=== PATIENT | male | born 1935 | race Caucasian/White ===

== ENCOUNTER 2017-04-30 21:48 | Inpatient (IN) | payer MEDICARE, OTHER ==
[~2017-04-30] VITALS: Ht 170.2 cm; Wt 86.2 kg
[~2017-04-30 21:48] MED LIST: ACET650S12 PO; ACYC-57 PO; AMIO200T PO; AMIT25TA PO; ASPI-515 PO; ATOR40TA PO; AZIT500T5 PO; BISA10SU54 PR; CEFD300C37 PO; CHOL2000 PO; DOCU240C31 PO; GABA-826 PO; GABA100C PO; LACT1CAP24 PO; LEVO500T47 PO; LIDO30CR TP; LIDO700A5 TD; MAGN400T26 PO; MERC50TA17 PO; METO25TA35 PO; METO25TA91 PO; MULT-26 PO; ONDA4TAB12 PO; OXYC-302 PO; PANT40TA3 PO; POLY17PO5 PO; PRED5TAB PO; SENN-31 PO; SIMV40TA3 PO; SIMV80TA3 PO; WARF1TAB7 PO; WARF5TAB7 PO
[2017-04-30] MEDS ORDERED: SODIUM CHLORIDE 0.9% 1,000ML IVBOLUS ONE (22:30)
[2017-04-30 23:11] LABS: INTERNATIONAL NORMALIZED RATIO 2.58 (0.93-1.1); PROTHROMBIN TIME 26.1 Seconds (9.6-11.5)
[2017-04-30 23:12] LABS: ALANINE AMINOTRANSFERASE 30 U/L (12-78); ALBUMIN 3.3 g/dL (3.4-5.0); ANION GAP 5 mmol/L (5-15); CALCIUM 8.8 mg/dL (8.5-10.1); CHLORIDE 109 mmol/L (98-107)
[2017-04-30 23:15] LABS: ALKALINE PHOSPHATASE 59 U/L (45-117); BILIRUBIN,TOTAL 0.7 mg/dL (0.2-1.0); CREATINE KINASE, TOTAL 42 U/L (39-308); TOTAL PROTEIN 7.4 g/dL (6.4-8.2)
[2017-04-30 23:19] LABS: BASOPHILS # (AUTO) 0.03 x10^3/uL (0-0.1); BASOPHILS % (AUTO) 0 % (0-1); EOSINOPHILS # (AUTO) 0.12 x10^3/uL (0-0.4); EOSINOPHILS % (AUTO) 1 % (1-7); LYMPHOCYTES # (AUTO) 0.61 x10^3/uL (1-3.4); LYMPHOCYTES % (AUTO) 5 % (22-44); MD SCAN; MEAN CORPUSCULAR HGB CONC 36.1 g/dL (33.2-36.2); MEAN CORPUSCULAR VOLUME 94.1 fL (81-97); MEAN PLATELET VOLUME 10.5 fL (7.4-10.4); MONOCYTES # (AUTO) 0.46 x10^3/uL (0.2-0.8); MONOCYTES % (AUTO) 4 % (2-9); NEUTROPHILS # (AUTO) 11.21 x10^3/uL (1.8-6.8); NEUTROPHILS % (AUTO) 90 % (42-75); PLATELET COUNT 97 x10^3/uL (130-400); RED BLOOD COUNT 4.42 x10^6/uL (4.38-5.82); RED CELL DISTRIBUTION WIDTH 15.5 % (9.4-14.8)
[2017-05-01 00:12] LABS: MICROSCOPIC NOT IND
[2017-05-01 00:14] LABS: CULTURE INDICATED? NO
[2017-05-01 01:53] VITALS: BP_SYST 169; BP_SYST 170; BP_DIAS 82; BP_DIAS 90
[2017-05-01 02:00] VITALS: BP 170/90
[2017-05-01] MEDS ORDERED: ONDANSETRON 2MG/ML, 2ML IVPush PRN (02:00)
[2017-05-01] MEDS ORDERED: POTASSIUM CHLORIDE 20 MEQ in SODIUM CHLORIDE 0.9% 1,000 ML IV SCH (02:00)
[2017-05-01] MEDS ORDERED: DOCUSATE 100 MG CAPSULE PO PRN (02:00)
[2017-05-01] MEDS ORDERED: POLYETHYLENE GLYCOL 17 GM PACKET PO PRN (02:00)
[2017-05-01 06:29] VITALS: BP 157/72
[2017-05-01] MEDS: MAGNESIUM OXIDE 400 MG TABLET PO SCH ×2 (08:39→20:54)
[2017-05-01] MEDS: AMITRIPTYLINE 25 MG TABLET PO SCH (08:39)
[2017-05-01] MEDS: GABAPENTIN 100 MG CAPSULE PO SCH ×3 (08:39→20:54)
[2017-05-01] MEDS: LACTOBACILLUS 1GM/ PACKET PO SCH ×3 (08:39→20:54)
[2017-05-01] MEDS: MULTIVITAMIN 1 TABLET PO SCH (08:39)
[2017-05-01] MEDS: SENNA/DOCUSATE TABLET PO SCH (08:39)
[2017-05-01 12:43] VITALS: BP 161/88
[2017-05-01] MEDS: WARFARIN 1 MG TABLET PO-COUM SCH (18:18)
[2017-05-01 20:00] VITALS: BP 122/63
[2017-05-01] MEDS: POTASSIUM CHLORIDE 20 MEQ in SODIUM CHLORIDE 0.9% 1,000 ML IV SCH (20:53)
[2017-05-01] MEDS: MERCAPTOPURINE 50 MG TABLET PO SCH (20:55)
[2017-05-02 01:30] VITALS: BP 145/93
[2017-05-02 05:33] LABS: ANION GAP 9 mmol/L (5-15); CALCIUM 8.4 mg/dL (8.5-10.1); CHLORIDE 111 mmol/L (98-107)
[2017-05-02 05:45] LABS: CREATININE 1.15 mg/dL (0.7-1.3)
[2017-05-02 07:41] VITALS: BP 131/91
[2017-05-02] MEDS: MAGNESIUM OXIDE 400 MG TABLET PO SCH ×2 (07:56→21:37)
[2017-05-02] MEDS: GABAPENTIN 100 MG CAPSULE PO SCH ×3 (07:56→21:37)
[2017-05-02] MEDS: MULTIVITAMIN 1 TABLET PO SCH (07:56)
[2017-05-02] MEDS: AMITRIPTYLINE 25 MG TABLET PO SCH (07:56)
[2017-05-02] MEDS: SENNA/DOCUSATE TABLET PO SCH (07:56)
[2017-05-02] MEDS: LACTOBACILLUS 1GM/ PACKET PO SCH ×3 (07:56→21:37)
[2017-05-02] MEDS: ACETAMINOPHEN 325 MG TABLET PO PRN (07:59)
[2017-05-02] MEDS: POTASSIUM CHLORIDE 20 MEQ in SODIUM CHLORIDE 0.9% 1,000 ML IV SCH (11:48)
[2017-05-02 14:00] VITALS: BP 135/85
[2017-05-02] MEDS: WARFARIN 1 MG TABLET PO-COUM SCH (17:52)
[2017-05-02 18:30] LABS: INTERNATIONAL NORMALIZED RATIO 2.11 (0.93-1.1); PROTHROMBIN TIME 21.4 Seconds (9.6-11.5)
[2017-05-02] MEDS ORDERED: WARFARIN 5 MG TABLET PO-COUM ONE (19:00)
[2017-05-02 20:00] VITALS: BP 150/80
[2017-05-02] MEDS: MERCAPTOPURINE 50 MG TABLET PO SCH (21:40)
[2017-05-03] MEDS: POTASSIUM CHLORIDE 20 MEQ in SODIUM CHLORIDE 0.9% 1,000 ML IV SCH ×2 (00:45→16:32)
[2017-05-03 02:48] VITALS: BP 134/76
[2017-05-03 05:41] LABS: CHLORIDE 111 mmol/L (98-107)
[2017-05-03 05:42] LABS: INTERNATIONAL NORMALIZED RATIO 2.09 (0.93-1.1); PROTHROMBIN TIME 21.2 Seconds (9.6-11.5)
[2017-05-03 05:48] LABS: ANION GAP 8 mmol/L (5-15); CALCIUM 8.7 mg/dL (8.5-10.1); CREATININE 1.22 mg/dL (0.7-1.3)
[2017-05-03 05:52] LABS: MEAN CORPUSCULAR HEMOGLOBIN 34.8 pg (27.5-34.5); MEAN CORPUSCULAR HGB CONC 35.9 g/dL (33.2-36.2); RED BLOOD COUNT 4.05 x10^6/uL (4.38-5.82); RED CELL DISTRIBUTION WIDTH 15.8 % (9.4-14.8)
[2017-05-03 06:30] LABS: BASOPHILS # (AUTO) 0.04 x10^3/uL (0-0.1); BASOPHILS % (AUTO) 1 % (0-1); EOSINOPHILS # (AUTO) 0.32 x10^3/uL (0-0.4); EOSINOPHILS % (AUTO) 4 % (1-7); LYMPHOCYTES # (AUTO) 0.89 x10^3/uL (1-3.4); LYMPHOCYTES % (AUTO) 11 % (22-44); MD SCAN; MEAN PLATELET VOLUME 10.3 fL (7.4-10.4); MONOCYTES # (AUTO) 0.56 x10^3/uL (0.2-0.8); MONOCYTES % (AUTO) 7 % (2-9); NEUTROPHILS # (AUTO) 6.16 x10^3/uL (1.8-6.8); NEUTROPHILS % (AUTO) 77 % (42-75); PLATELET COUNT 90 x10^3/uL (130-400)
[2017-05-03 07:41] VITALS: BP 139/70
[2017-05-03] MEDS: AMITRIPTYLINE 25 MG TABLET PO SCH ×2 (09:00→16:33)
[2017-05-03] MEDS: LACTOBACILLUS 1GM/ PACKET PO SCH ×3 (09:00→22:26)
[2017-05-03] MEDS: MULTIVITAMIN 1 TABLET PO SCH (09:00)
[2017-05-03] MEDS: SENNA/DOCUSATE TABLET PO SCH (09:00)
[2017-05-03] MEDS: MAGNESIUM OXIDE 400 MG TABLET PO SCH ×2 (09:00→22:26)
[2017-05-03] MEDS: GABAPENTIN 100 MG CAPSULE PO SCH ×3 (09:00→22:26)
[2017-05-03 13:30] VITALS: BP 168/76
[2017-05-03] MEDS ORDERED: MIDAZOLAM 1 MG/ML, 5ML ONE (15:22)
[2017-05-03] MEDS ORDERED: FENTANYL PF 100 MCG/2ML ONE (15:22)
[2017-05-03] MEDS ORDERED: NALOXONE 1 MG/ML, 2ML ONE (15:23)
[2017-05-03] MEDS ORDERED: FLUMAZENIL 0.1 MG/1 ML, 5ML ONE (15:23)
[2017-05-03] MEDS ORDERED: GADOBUTROL 7.5 MMOL/7.5 ML PFS ONE (15:50)
[2017-05-03] MEDS ORDERED: WARFARIN 3 MG TABLET PO-COUM ONE (18:00)
[2017-05-03 19:02] VITALS: BP 148/90
[2017-05-03] MEDS: MERCAPTOPURINE 50 MG TABLET PO SCH (22:26)
[2017-05-03] MEDS: ACETAMINOPHEN 325 MG TABLET PO PRN (22:26)
[2017-05-04 02:59] VITALS: BP 146/85
[2017-05-04 05:22] LABS: INTERNATIONAL NORMALIZED RATIO 2.25 (0.93-1.1); PROTHROMBIN TIME 22.8 Seconds (9.6-11.5)
[2017-05-04 07:10] VITALS: BP 156/90
[2017-05-04] MEDS: GABAPENTIN 100 MG CAPSULE PO SCH ×3 (08:51→20:42)
[2017-05-04] MEDS: MULTIVITAMIN 1 TABLET PO SCH (08:51)
[2017-05-04] MEDS: AMITRIPTYLINE 25 MG TABLET PO SCH (08:51)
[2017-05-04] MEDS: LACTOBACILLUS 1GM/ PACKET PO SCH ×3 (08:51→20:36)
[2017-05-04] MEDS: MAGNESIUM OXIDE 400 MG TABLET PO SCH ×2 (08:51→20:37)
[2017-05-04] MEDS: SENNA/DOCUSATE TABLET PO SCH (08:51)
[2017-05-04] MEDS: POTASSIUM CHLORIDE 20 MEQ in SODIUM CHLORIDE 0.9% 1,000 ML IV SCH (08:53)
[2017-05-04 13:59] VITALS: BP 136/71
[2017-05-04] MEDS ORDERED: WARFARIN 5 MG TABLET PO-COUM ONE (18:00)
[2017-05-04 20:37] VITALS: BP 140/77
[2017-05-04] MEDS: MERCAPTOPURINE 50 MG TABLET PO SCH (20:37)
[2017-05-04] MEDS: NS + 20MEQ KCL 1,000 ML IV SCH (22:25)
[2017-05-05 02:23] VITALS: BP 120/76
[2017-05-05 08:04] LABS: ANION GAP 5 mmol/L (5-15); CALCIUM 8.4 mg/dL (8.5-10.1); CHLORIDE 111 mmol/L (98-107); CREATININE 1.22 mg/dL (0.7-1.3); INTERNATIONAL NORMALIZED RATIO 2.59 (0.93-1.1); PROTHROMBIN TIME 26.2 Seconds (9.6-11.5)
[2017-05-05] MEDS: MULTIVITAMIN 1 TABLET PO SCH (08:18)
[2017-05-05] MEDS: GABAPENTIN 100 MG CAPSULE PO SCH (08:18)
[2017-05-05] MEDS: MAGNESIUM OXIDE 400 MG TABLET PO SCH (08:18)
[2017-05-05] MEDS: LACTOBACILLUS 1GM/ PACKET PO SCH (08:19)
[2017-05-05] MEDS: AMITRIPTYLINE 25 MG TABLET PO SCH (08:19)
[2017-05-05] MEDS: SENNA/DOCUSATE TABLET PO SCH (08:20)
[2017-05-05 08:40] LABS: MEAN CORPUSCULAR HEMOGLOBIN 31.8 pg (27.5-34.5); MEAN CORPUSCULAR HGB CONC 34.1 g/dL (33.2-36.2); MEAN CORPUSCULAR VOLUME 93.3 fL (81-97); RED BLOOD COUNT 4.31 x10^6/uL (4.38-5.82); RED CELL DISTRIBUTION WIDTH 15.9 % (9.4-14.8)
[2017-05-05 09:11] LABS: BASOPHILS # (AUTO) 0.06 x10^3/uL (0-0.1); BASOPHILS % (AUTO) 1 % (0-1); EOSINOPHILS # (AUTO) 0.29 x10^3/uL (0-0.4); EOSINOPHILS % (AUTO) 4 % (1-7); LYMPHOCYTES # (AUTO) 0.93 x10^3/uL (1-3.4); LYMPHOCYTES % (AUTO) 12 % (22-44); MD SCAN; MEAN PLATELET VOLUME 10.3 fL (7.4-10.4); MONOCYTES # (AUTO) 0.58 x10^3/uL (0.2-0.8); MONOCYTES % (AUTO) 7 % (2-9); NEUTROPHILS # (AUTO) 5.95 x10^3/uL (1.8-6.8); NEUTROPHILS % (AUTO) 76 % (42-75); PLATELET COUNT 85 x10^3/uL (130-400)
[2017-05-05] MEDS: NS + 20MEQ KCL 1,000 ML IV SCH (12:59)
[2017-05-05] MEDS ORDERED: WARFARIN 5 MG TABLET PO-COUM ONE (18:00)
[2017-05-05] MEDS ORDERED: SIMVASTATIN 40 MG TABLET PO SCH (21:00)
== END 2017-05-05 17:36 | DRG 70 ==
LOC: ED 05-01 01:08 → SUATTDRO 05-01 01:18 → EDIP 05-01 01:22 → 4NOR 05-01 01:37 → 4WST 05-04 11:19
PROVIDERS: ADMIT Emergency Medicine; ATTEND Hospitalist
DX: G93.41 Metabolic encephalopathy (principal); N17.0 Acute kidney failure with tubular necrosis; I63.9 Cerebral infarction, unspecified; E44.0 Moderate protein-calorie malnutrition; K51.90 Ulcerative colitis, unspecified, without complications; D69.6 Thrombocytopenia, unspecified; I48.0 Paroxysmal atrial fibrillation; I11.0 Hypertensive heart disease with heart failure; I50.22 Chronic systolic (congestive) heart failure; G20 Parkinson's disease; I25.10 Atherosclerotic heart disease of native coronary artery without angina pectoris; E78.5 Hyperlipidemia, unspecified; D72.829 Elevated white blood cell count, unspecified; E86.0 Dehydration; I25.2 Old myocardial infarction; I69.322 Dysarthria following cerebral infarction; I69.391 Dysphagia following cerebral infarction; R29.810 Facial weakness; Z79.01 Long term (current) use of anticoagulants; Z79.52 Long term (current) use of systemic steroids; Z82.3 Family history of stroke; Z86.711 Personal history of pulmonary embolism; Z86.718 Personal history of other venous thrombosis and embolism; Z87.891 Personal history of nicotine dependence; Z95.1 Presence of aortocoronary bypass graft; Z88.8 Allergy status to other drugs, medicaments and biological substances; Z68.29 Body mass index [BMI] 29.0-29.9, adult
CPT/HCPCS: 36415; 70450; 70553; 71010; 80048; 80053; 81003; 82550; 82962; 83605; 83735; 84100; 84443; 85025; 85610; 87040; 93005; 93306; 93880; 96360; 96361; A9585; J2250; J3010; J3480; J2310; J7030; J7512

== ENCOUNTER 2017-05-16 17:49 | Inpatient (IN) | payer MEDICARE, OTHER ==
[~2017-05-16] VITALS: Ht 170.2 cm; Wt 84.8 kg
[2017-05-16] MEDS ORDERED: SODIUM CHLORIDE FLUSH 10ML SYR IVF ONE (18:30)
[2017-05-16] MEDS ORDERED: SODIUM CHLORIDE 0.9% 1,000ML IVBOLUS ONE (18:30)
[2017-05-16 18:37] LABS: HEMATOCRIT 36.1 % (39.2-51.8); HEMOGLOBIN 12.8 g/dL (13.7-18.0); WHITE BLOOD COUNT 7.3 x10^3/uL (3.4-10)
[2017-05-16 18:46] LABS: ASPARTATE AMINO TRANSFERASE 32 U/L (15-37); BLOOD UREA NITROGEN 18 mg/dL (7-18)
[2017-05-16] MEDS ORDERED: PIPERACILLIN/TAZO/PMX 3.375GM 50 ML IVPB ONE (19:00)
[2017-05-16] MEDS ORDERED: PHARMACOKINETIC CONSULTATION MC ONE (19:00)
[2017-05-16] MEDS ORDERED: VANCOMYCIN 1,300 MG in SODIUM CHLORIDE 0.9% 250 ML IV ONE (19:00)
[2017-05-16] MEDS ORDERED: VANCOMYCIN PER PHARMACY MC ONE (19:00)
[2017-05-16] MEDS ORDERED: ALBUTEROL/IPRATROPIUM 2.5MG/0.5MG, 3 ML ONE (19:18)
[2017-05-16] MEDS ORDERED: PIPERACILLIN/TAZO/PMX 3.375GM 50 ML ONE (20:08)
[2017-05-16 21:09] LABS: IS PT STATUS REG ER OR PRE ER? YES
[2017-05-16 22:30] VITALS: BP 135/75
[2017-05-16] MEDS ORDERED: BISACODYL 10 MG SUPP PR PRN (22:30)
[2017-05-16] MEDS ORDERED: PIPERACILLIN/TAZO/PMX 3.375GM 50 ML IV SCH (22:30)
[2017-05-16] MEDS ORDERED: MAGNESIUM OXIDE 400 MG TABLET PO SCH (22:30)
[2017-05-16] MEDS ORDERED: ONDANSETRON 2MG/ML, 2ML IVPush PRN (22:30)
[2017-05-16] MEDS ORDERED: ACETAMINOPHEN 325 MG TABLET PO PRN (22:30)
[2017-05-16] MEDS ORDERED: VANCOMYCIN PER PHARMACY MC PRN (22:30)
[2017-05-16] MEDS ORDERED: PHARMACOKINETIC MONITORING MC PRN (23:00)
[2017-05-17] MEDS: SODIUM CHLORIDE 0.9% 1,000 ML IV SCH ×2 (00:11→16:11)
[2017-05-17] MEDS: GABAPENTIN 100 MG CAPSULE PO SCH ×4 (00:11→20:52)
[2017-05-17] MEDS: LACTOBACILLUS CHEW TABLET PO SCH ×4 (00:12→20:52)
[2017-05-17] MEDS: SIMVASTATIN 40 MG TABLET PO SCH ×2 (00:12→20:52)
[2017-05-17] MEDS: MERCAPTOPURINE 50 MG TABLET PO SCH ×2 (00:13→21:00)
[2017-05-17 01:21] LABS: IS PT STATUS REG ER OR PRE ER? NO
[2017-05-17 02:00] VITALS: BP 135/68
[2017-05-17] MEDS: PIPERACILLIN/TAZO 3.375 GM in SODIUM CHLORIDE 0.9% 50 ML IVPB SCH ×4 (02:20→23:09)
[2017-05-17 06:10] LABS: HEMATOCRIT 35.8 % (39.2-51.8); HEMOGLOBIN 12.5 g/dL (13.7-18.0); WHITE BLOOD COUNT 6.9 x10^3/uL (3.4-10)
[2017-05-17 06:22] LABS: ASPARTATE AMINO TRANSFERASE 27 U/L (15-37); BLOOD UREA NITROGEN 16 mg/dL (7-18)
[2017-05-17 06:26] LABS: IS PT STATUS REG ER OR PRE ER? NO
[2017-05-17 08:37] VITALS: BP 131/73
[2017-05-17] MEDS ORDERED: WARFARIN 1 MG TABLET PO-COUM SCH (09:00)
[2017-05-17] MEDS: AMITRIPTYLINE 25 MG TABLET PO SCH (09:36)
[2017-05-17] MEDS: CHOLECALCIFEROL 1,000 UNIT TABLET PO SCH (09:37)
[2017-05-17] MEDS: SENNA/DOCUSATE TABLET PO SCH (09:37)
[2017-05-17] MEDS: MAGNESIUM CARBONATE 54 MG/5 ML ORAL SOL PO SCH ×2 (09:37→21:00)
[2017-05-17] MEDS: MULTIVITAMIN 1 TABLET PO SCH (09:37)
[2017-05-17 14:05] VITALS: BP 127/76
[2017-05-17 19:41] VITALS: BP 134/73
[2017-05-17] MEDS: VANCOMYCIN 1,500 MG in SODIUM CHLORIDE 0.9% 250 ML IV SCH (20:34)
[2017-05-17] MEDS: WARFARIN 1 MG TABLET PO-COUM SCH (20:51)
[2017-05-18 02:15] VITALS: BP 124/66
[2017-05-18] MEDS: PIPERACILLIN/TAZO 3.375 GM in SODIUM CHLORIDE 0.9% 50 ML IVPB SCH ×4 (03:35→22:49)
[2017-05-18 07:41] VITALS: BP 136/75
[2017-05-18] MEDS: LACTOBACILLUS CHEW TABLET PO SCH ×3 (08:54→20:19)
[2017-05-18] MEDS: MULTIVITAMIN 1 TABLET PO SCH (08:54)
[2017-05-18] MEDS: GABAPENTIN 100 MG CAPSULE PO SCH ×3 (08:54→20:20)
[2017-05-18] MEDS: CHOLECALCIFEROL 1,000 UNIT TABLET PO SCH (08:54)
[2017-05-18] MEDS: MAGNESIUM CARBONATE 54 MG/5 ML ORAL SOL PO SCH ×2 (08:54→20:19)
[2017-05-18] MEDS: AMITRIPTYLINE 25 MG TABLET PO SCH (08:54)
[2017-05-18] MEDS: SENNA/DOCUSATE TABLET PO SCH (08:55)
[2017-05-18] MEDS: SODIUM CHLORIDE 0.9% 1,000 ML IV SCH (09:45)
[2017-05-18 14:16] VITALS: BP 113/63
[2017-05-18] MEDS: VANCOMYCIN 1,500 MG in SODIUM CHLORIDE 0.9% 250 ML IV SCH (19:26)
[2017-05-18 19:36] VITALS: BP 130/66
[2017-05-18] MEDS: WARFARIN 1 MG TABLET PO-COUM SCH (20:00)
[2017-05-18] MEDS: SIMVASTATIN 40 MG TABLET PO SCH (20:19)
[2017-05-18] MEDS: ENOXAPARIN 80 MG/0.8 ML SQ SCH (20:19)
[2017-05-18] MEDS: MERCAPTOPURINE 50 MG TABLET PO SCH (20:32)
[2017-05-19 02:18] VITALS: BP 138/81
[2017-05-19] MEDS: SODIUM CHLORIDE 0.9% 1,000 ML IV SCH ×2 (02:19→15:33)
[2017-05-19] MEDS: PIPERACILLIN/TAZO 3.375 GM in SODIUM CHLORIDE 0.9% 50 ML IVPB SCH ×4 (04:14→22:11)
[2017-05-19 07:07] VITALS: BP 122/60
[2017-05-19] MEDS: SENNA/DOCUSATE TABLET PO SCH (09:00)
[2017-05-19] MEDS: CHOLECALCIFEROL 1,000 UNIT TABLET PO SCH (10:33)
[2017-05-19] MEDS: MAGNESIUM CARBONATE 54 MG/5 ML ORAL SOL PO SCH ×2 (10:33→20:28)
[2017-05-19] MEDS: ENOXAPARIN 80 MG/0.8 ML SQ SCH ×2 (10:33→20:28)
[2017-05-19] MEDS: LACTOBACILLUS CHEW TABLET PO SCH ×3 (10:33→20:28)
[2017-05-19] MEDS: AMITRIPTYLINE 25 MG TABLET PO SCH (10:33)
[2017-05-19] MEDS: GABAPENTIN 100 MG CAPSULE PO SCH ×3 (10:34→20:28)
[2017-05-19] MEDS: MULTIVITAMIN 1 TABLET PO SCH (10:34)
[2017-05-19 14:26] VITALS: BP 128/63
[2017-05-19] MEDS: WARFARIN 1 MG TABLET PO-COUM SCH (18:42)
[2017-05-19] MEDS: VANCOMYCIN 1,500 MG in SODIUM CHLORIDE 0.9% 250 ML IV SCH (20:20)
[2017-05-19] MEDS: SIMVASTATIN 40 MG TABLET PO SCH (20:28)
[2017-05-19] MEDS: MERCAPTOPURINE 50 MG TABLET PO SCH (20:31)
[2017-05-19 21:12] VITALS: BP 118/62
[2017-05-20 02:00] VITALS: BP 130/60
[2017-05-20] MEDS: PIPERACILLIN/TAZO 3.375 GM in SODIUM CHLORIDE 0.9% 50 ML IVPB SCH ×4 (04:07→22:37)
[2017-05-20] MEDS: SODIUM CHLORIDE 0.9% 1,000 ML IV SCH ×2 (04:08→17:50)
[2017-05-20 07:12] VITALS: BP 129/70
[2017-05-20] MEDS: SENNA/DOCUSATE TABLET PO SCH (09:00)
[2017-05-20] MEDS ORDERED: AMOX600S36 PO (09:33)
[2017-05-20] MEDS: MULTIVITAMIN 1 TABLET PO SCH (11:05)
[2017-05-20] MEDS: AMITRIPTYLINE 25 MG TABLET PO SCH (11:05)
[2017-05-20] MEDS: ENOXAPARIN 80 MG/0.8 ML SQ SCH ×2 (11:05→20:51)
[2017-05-20] MEDS: GABAPENTIN 100 MG CAPSULE PO SCH ×3 (11:05→20:52)
[2017-05-20] MEDS: LACTOBACILLUS CHEW TABLET PO SCH ×3 (11:06→20:52)
[2017-05-20] MEDS: CHOLECALCIFEROL 1,000 UNIT TABLET PO SCH (11:06)
[2017-05-20] MEDS: MAGNESIUM CARBONATE 54 MG/5 ML ORAL SOL PO SCH ×2 (11:07→20:52)
[2017-05-20 14:59] VITALS: BP 140/76
[2017-05-20] MEDS: WARFARIN 1 MG TABLET PO-COUM SCH (17:51)
[2017-05-20 19:52] VITALS: BP 118/67
[2017-05-20] MEDS: MERCAPTOPURINE 50 MG TABLET PO SCH (20:50)
[2017-05-20] MEDS: VANCOMYCIN 1,500 MG in SODIUM CHLORIDE 0.9% 250 ML IV SCH (20:51)
[2017-05-20] MEDS: SIMVASTATIN 40 MG TABLET PO SCH (20:52)
[2017-05-21 02:00] VITALS: BP 130/69
[2017-05-21] MEDS: PIPERACILLIN/TAZO 3.375 GM in SODIUM CHLORIDE 0.9% 50 ML IVPB SCH ×2 (03:53→11:27)
[2017-05-21 08:10] VITALS: BP 126/66
[2017-05-21] MEDS: SENNA/DOCUSATE TABLET PO SCH (09:00)
[2017-05-21] MEDS: GABAPENTIN 100 MG CAPSULE PO SCH (11:27)
[2017-05-21] MEDS: SODIUM CHLORIDE 0.9% 1,000 ML IV SCH (11:27)
[2017-05-21] MEDS: ENOXAPARIN 80 MG/0.8 ML SQ SCH (11:27)
[2017-05-21] MEDS: MAGNESIUM CARBONATE 54 MG/5 ML ORAL SOL PO SCH (11:27)
[2017-05-21] MEDS: LACTOBACILLUS CHEW TABLET PO SCH (11:28)
[2017-05-21] MEDS: MULTIVITAMIN 1 TABLET PO SCH (11:28)
[2017-05-21] MEDS: CHOLECALCIFEROL 1,000 UNIT TABLET PO SCH (11:28)
[2017-05-21] MEDS: AMITRIPTYLINE 25 MG TABLET PO SCH (11:28)
[2017-05-21 13:22] VITALS: BP 128/65
== END 2017-05-21 16:50 | disposition home or self-care (01) | DRG 177 ==
LOC: ED 19:20 → EDIP 20:24 → 4EST 21:21 → 4WST 21:44
PROVIDERS: ADMIT Surgery; ATTEND Hospitalist
DX: J69.0 Pneumonitis due to inhalation of food and vomit (principal); J96.01 Acute respiratory failure with hypoxia; E43 Unspecified severe protein-calorie malnutrition; D89.9 Disorder involving the immune mechanism, unspecified; I48.0 Paroxysmal atrial fibrillation; K51.90 Ulcerative colitis, unspecified, without complications; I50.22 Chronic systolic (congestive) heart failure; I11.0 Hypertensive heart disease with heart failure; D64.9 Anemia, unspecified; I25.10 Atherosclerotic heart disease of native coronary artery without angina pectoris; E78.5 Hyperlipidemia, unspecified; Z68.29 Body mass index [BMI] 29.0-29.9, adult; R13.10 Dysphagia, unspecified; I69.391 Dysphagia following cerebral infarction; Y95 Nosocomial condition; Z66 Do not resuscitate; Z79.01 Long term (current) use of anticoagulants; Z82.3 Family history of stroke; Z86.711 Personal history of pulmonary embolism; Z86.718 Personal history of other venous thrombosis and embolism; Z87.891 Personal history of nicotine dependence; Z87.01 Personal history of pneumonia (recurrent); Z95.1 Presence of aortocoronary bypass graft
CPT/HCPCS: 36415; 71010; 74230; 80053; 80202; 83605; 83735; 84145; 84484; 85025; 85610; 85730; 87040; 93005; 96361; 96365; 96366; J1650; J2543; J3370; J7030; J7050; J7512